=== PATIENT | male | born 1950 | race Caucasian/White ===

== ENCOUNTER → 2019-02-12 | Outpatient (CLI) | payer OTHER ==
--- NOTE | 2019-02-12 16:20 | REP ---
HISTORY: Open wound with pain and swelling. TECHNIQUE: Multiple ultrasonographic images of the deep venous structures of the left upper extremity were obtained to rule out deep venous thrombosis. FINDINGS: There is no abnormal echogenic material seen in any of the visualized deep venous structures of the left upper extremity. Coaptation where applicable is appropriate throughout. Augmentation shows an expected response throughout. IMPRESSION: Negative exam. Electronically Signed by Smooth Buck DO 02/12/2019 04:32 P
== END ==
LOC: M RAD 14:28
PROVIDERS: ATTEND Plastic Surgery Surgery of the Hand
DX: R22.32 Localized swelling, mass and lump, left upper limb (principal)

== ENCOUNTER 2021-02-13 03:55 | Emergency (ER) | payer BC, OTHER ==
[~2021-02-13] VITALS: Ht 180.3 cm; Wt 97.2 kg
[2021-02-13] MEDS ORDERED: AMLO25TA PO (04:14)
[2021-02-13] MEDS ORDERED: ALLO100T PO (04:14)
[2021-02-13] MEDS ORDERED: ATOR80TA59 PO (04:14)
[2021-02-13] MEDS ORDERED: LOSA50TA88 PO (04:14)
[2021-02-13] MEDS ORDERED: ELIQ5TAB PO (04:14)
[2021-02-13] MEDS ORDERED: COLC0.6T47 PO (04:14)
[2021-02-13] MEDS ORDERED: valACYclovir HCL 500 MG TAB PO ONE (08:30)
[2021-02-13] MEDS ORDERED: HYDR-3713 PO (08:32)
[2021-02-13] MEDS ORDERED: VALT1TAB PO (08:32)
[2021-02-13 09:00] VITALS: BP 145/88
== END 2021-02-13 09:02 | disposition home or self-care (01) ==
LOC: M ED 03:55
DX: B02.9 Zoster without complications (principal); K42.9 Umbilical hernia without obstruction or gangrene; I48.91 Unspecified atrial fibrillation; E78.5 Hyperlipidemia, unspecified; I10 Essential (primary) hypertension; Z79.899 Other long term (current) drug therapy